=== PATIENT | female | born 1930 | race Caucasian/White ===

== ENCOUNTER 2019-10-16 13:36 | Emergency (ER) | payer MEDICARE, BC ==
[2019-10-16] MEDS ORDERED: LIDOCAINE 5% (700 MG) TRANSDERMAL ADH..PATCH TP ONE (14:01)
[2019-10-16] MEDS ORDERED: NAPROXEN 250 MG TABLET PO ONE (14:01)
--- NOTE | 2019-10-16 14:07 | ER Document Report ---
HPI - HPI Time Seen by Provider: 10/16/19 13:56 Pain Level: 5 Notes: Patient is an 89-year-old female who presents complaining of left lower back pain status post fall 6 days ago. Patient states that she tripped and fell forward. Patient states that she did not have any immediate pain and did not hit her head or lose conscious. Patient states that on Saturday she started having soreness to her left lower back that is relieved when she sits forward, but worsened with movement and twisting otherwise. Patient states that the pain also goes away when she supine and sleeping. Patient states that she can wake up without pain, but when she starts twisting her body around is when she starts noticing the pain again. The pain does not radiate. Patient states that her doctor wanted an x-ray of her lower back and of her pelvis because she did have a hip replacement before. She is otherwise eating and drinking without difficulty. She is urinating normally and having normal bowel movements. She is ambulatory with normal gait per patient. Denies drug allergies. She is not on any blood thinning medications. Denies any headache, fever, head injury, neck pain, changes in vision/speech/mentation/hearing, URI, sore throat, chest pain, palpitations, syncope, cough, shortness of breath, wheeze, dyspnea, abdominal pain, nausea/vomiting/diarrhea, urinary retention, dysuria, hematuria, loss of control of bowel or bladder, numbness/tingling, saddle anesthesia, muscle paralysis/weakness, or rash. - ROS Systems Reviewed and Negative: Yes All other systems reviewed and negative Past Medical History - Social History Smoking Status: Never Smoker Chew tobacco use (# tins/day): No Drug Abuse: None Family History: Reviewed & Not Pertinent Patient has suicidal ideation: No Patient has homicidal ideation: No Vertical Provider Document - CONSTITUTIONAL Agree With Documented VS: Yes Notes: PHYSICAL EXAMINATION: GENERAL: Well-appearing, well-nourished and in no acute distress. LUNGS: Breath sounds clear to auscultation bilaterally and equal. No wheezes rales or rhonchi. HEART: Regular rate and rhythm without murmurs, rubs, gallops. ABDOMEN: Soft, nontender, nondistended abdomen. No guarding, no rebound. Normal bowel sounds present. No CVA tenderness bilaterally. No obvious pulsatile mass Musculoskeletal: LE's b/l: FROM to passive/active. Strength 5+/5. No deficits noted. No bony tenderness of extremities. Back: FROM to passive/active. Strength 5+/5. No vertebral point tenderness, stepoffs, or deformities. No other bony tenderness, erythema, swelling, or ecchymosis. SLR negative b/l. + mild reproducible tenderness to the left L- paraspinal mm. Mild spasming. No SI jt tenderness. No foot drop Extremities: No cyanosis, clubbing, or edema b/l. Peripheral pulses 2+. Capillary refill less than 2 seconds. NEUROLOGICAL: Normal speech, normal gait. Normal sensory, motor exams. Reflexes 2+ b/l. PSYCH: Normal mood, normal affect. SKIN: Warm, Dry, normal turgor, no rashes or lesions noted. Course - Re-evaluation Re-evalutation: 10/16/19 Patient is an afebrile, well-hydrated, 89-year-old female who presents to the ED with left low back pain, suspect inflammatory. Vitals are acceptable. PE is otherwise unremarkable for any focal neurological deficits. X-rays acceptable, ?endplate deformity L2 of unknown age, but pt currently not tender here. 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 She has no significant tachycardia, tachypnea, or hypoxia. She is nontoxic-appearing and is tolerating p.o. without difficulties. There are no signs of infection. No other red flag symptoms noted. No other labs or imaging warranted at this time based on H&P. Low suspicion for any meningitis, fracture, expanding/ruptured AAA, cauda equina syndrome, epidural mass lesion/abscess, herniated disc causing severe spinal stenosis, or other systemic infection at this time. Patient is aware that this condition can change from initial presentation and that she needs monitor symptoms closely for any acute changes. I will send her home with a prescription for lidoderm patch, and short course of mobic with GI bleed risk reviewed. Conservative measures otherwise for symptoms. Recheck with your PCM in 3-5 days. Consider consult with orthopedic/physical therapy. Return to the ED with any worsening/concerning symptoms otherwise as reviewed discharge. Patient is in agreement. - Vital Signs Vital signs: Temp Pulse Resp BP Pulse Ox 97.8 F 57 L 16 148/62 H 98 10/16/19 13:48 10/16/19 13:48 10/16/19 13:48 10/16/19 13:48 10/16/19 13:48 Discharge - Discharge Clinical Impression: Low back pain Qualifiers: Chronicity: acute Back pain laterality: left Sciatica presence: without sciatica Qualified Code(s): M54.5 - Low back pain Condition: Stable Disposition: HOME, SELF-CARE Additional Instructions: Rest, Ice Tylenol/ibuprofen as needed Light stretches daily Strength exercises as able Moist heat and massage may help F/u with your PCP in 3-5 days for a recheck Consider consult(s) with Orthopedics/physical therapy for ongoing/worsening symptoms Return to the ED with any worsening symptoms and/or development of fever, headache, chest pain, palpitations, syncope, shortness of breath, trouble breathing, abdominal pain, n/v/d, blood in stool/urine, loss of control of bowel/bladder, urinary retention, muscle weakness/paralysis, saddle anesthesia, numbness/tingling, or other worsening symptoms that are concerning to you. Prescriptions: Lidocaine [Lidoderm 5% (700 mg) Transdermal Patch] 1 patch TP DAILY #10 a dh..patch Meloxicam [Mobic 7.5 Mg Tablet] 7.5 mg PO BID PRN #14 tablet PRN Reason: Forms: Elevated Blood Pressure Referrals: [facility] [Provider Group] - Follow up as needed
--- NOTE | 2019-10-16 15:08 | RADIOLOGY REPORT (SQ) ---
EXAM DESCRIPTION: PELVIS AP COMPLETED DATE/TIME: 10/16/2019 2:35 pm REASON FOR STUDY: back pain, fall COMPARISON: None. NUMBER OF VIEWS: One view TECHNIQUE: AP Pelvis LIMITATIONS: None. FINDINGS: MINERALIZATION: Normal. HIPS: Right hip arthroplasty in good position. PELVIS AND SACRUM: No acute fracture or dislocation. No worrisome bone lesions. PUBIS AND ISCHIUM: No acute fracture. LOWER LUMBAR SPINE: No significant findings as visualized. SOFT TISSUES: No findings. OTHER: No other significant finding. IMPRESSION: NEGATIVE STUDY OF THE PELVIS. COMMENT: Pelvic fractures are often occult on plain radiographs. If strong clinical suspicion for f racture, recommend CT or MR. TECHNICAL DOCUMENTATION: JOB ID: [id number] [email or web address]- All Rights Reserved Reading location - IP/workstation name: [email or web address]
--- NOTE | 2019-10-16 15:11 | RADIOLOGY REPORT (SQ) ---
EXAM DESCRIPTION: L SPINE WHOLE COMPLETED DATE/TIME: 10/16/2019 2:35 pm REASON FOR STUDY: Left low back pain COMPARISON: None. NUMBER OF VIEWS: Five views including obliques. TECHNIQUE: AP, lateral, oblique, and sacral radiographic images acquired of the lumbar spine. LIMITATIONS: None. FINDINGS: MINERALIZATION: Normal. SEGMENTATION: Normal. No transitional anatomy. ALIGNMENT: Mild levoscoliosis. Mild anterolisthesis of L3 on L4. VERTEBRAE: Mild superior endplate compression changes at L2 DISCS: Mild disc narrowing at L5-S1. POSTERIOR ELEMENTS: Hypertrophic facet changes from L3-S1. HARDWARE: None in the spine. PARASPINAL SOFT TISSUES: Normal. PELVIS: Intact as visualized. No fractures or worrisome bone lesions. SI joints intact. OTHER: No other significant finding. IMPRESSION: Mild superior endplate compression changes at L2 of uncertain age. Mild scoliosis. Mil d anterolisthesis of L3 on L4. Degenerative disc disease. Facet arthropathy. TECHNICAL DOCUMENTATION: JOB ID: [id number] [email or web address]- All Rights Reserved Reading location - IP/workstation name: [email or web address]
[2019-10-16 15:41] VITALS: BP 142/72
== END 2019-10-16 15:39 | disposition home or self-care (01) ==
LOC: ER 13:36
DX: M54.5 Low back pain (principal); W19.XXXA Unspecified fall, initial encounter; R25.2 Cramp and spasm
CPT/HCPCS: 99283; 72110; 72170; A9270

== ENCOUNTER 2020-02-12 19:25 | Emergency (ER) | payer MEDICARE, BC ==
[2020-02-12] MEDS ORDERED: MORPHINE SULFATE 10 MG/ML INJ IV ONE (19:45)
[2020-02-12] MEDS ORDERED: NORMAL SALINE 1000 ML 1,000 ML IV PRN (19:45)
--- NOTE | 2020-02-12 19:46 | ER Document Report ---
ED Medical Screen (RME) - General Chief Complaint: Fall Injury Stated Complaint: FALL LEFT ELBOW INJURY Time Seen by Provider: 02/12/20 19:44 Primary Care Provider: CITLALI FRAUSTO MD [Primary Care Provider] - Follow up as needed Information source: Patient - This an 89-year-old female presented to the emergency room today stating that she fell and has dislocated her left elbow. - HPI Onset: Other - Related Data Allergies/Adverse Reactions: No Known Allergies Allergy (Unverified 10/16/19 14:01) Home Medications: Amiodorane. levothyroxine Past Medical History - Social History Chew tobacco use (# tins/day): No Frequency of alcohol use: None Drug Abuse: None Physical Exam - Vital signs Vitals: Temp Pulse Resp BP Pulse Ox 98.0 F 61 20 110/49 L 95 02/12/20 19:33 02/12/20 19:33 02/12/20 19:33 02/12/20 19:33 02/12/20 19:33 Course - Vital Signs Vital signs: Temp Pulse Resp BP Pulse Ox 98.0 F 61 20 110/49 L 95 02/12/20 19:33 02/12/20 19:33 02/12/20 19:33 02/12/20 19:33 02/12/20 19:33 Doctor's Discharge - Discharge Referrals: CITLALI FRAUSTO MD [Primary Care Provider] - Follow up as needed
--- NOTE | 2020-02-12 20:18 | RADIOLOGY REPORT (SQ) ---
EXAM DESCRIPTION: XR ELBOW 1-2 VIEWS COMPLETED DATE/TME: 02/12/2020 19:44 CLINICAL HISTORY: 89 years, Female, pain COMPARISON: None. NUMBER OF VIEWS: 2 TECHNIQUE: Frontal and lateral radiographs were obtained LIMITATIONS: None. FINDINGS: Visualized is dislocation of the radiocapitellar and ulnotrochlear joints, most likely medially. Assessment for an associated fracture is difficult though no obvious displaced fracture fragment is clearly identified. IMPRESSION: Dislocation of the radiocapitellar and ulnotrochlear joints, as above. copyright 2010 [employer]- All Rights Reserved
[2020-02-12] MEDS ORDERED: ONDANSETRON HCL INJ/PF 4 MG/2 ML SDV IV ONE (20:31)
[2020-02-12] MEDS ORDERED: HYDROMORPHONE HCL INJ/PF 2 MG/ML AMPULE IV ONE ×2 (20:31→21:30)
--- NOTE | 2020-02-12 20:58 | ER Document Report ---
Entered by TINY HUSAIN SCRIBE 02/12/202026 Acting as scribe for:ANYI SWANSON IV, MD ED Extremity Problem, Upper - General Chief Complaint: Fall Injury Stated Complaint: FALL LEFT ELBOW INJURY Time Seen by Provider: 02/12/20 19:44 Primary Care Provider: CITLALI FRAUSTO MD [Primary Care Provider] - Follow up as needed MARY JO TAMEZ JR, DO [ACTIVE PROVISIONAL STAFF] - 02/15/20 (call Dr. Tamez's office on 02/15/20 to arrange follow up appointment) Mode of Arrival: Ambulatory Information source: Patient Notes: This 89 year old female patient presents to the ED today with complaints of a left elbow injury and left shoulder pain status post fall that occurred around 1800 today. Patient states that she was walking her dogs this evening when she fell onto her left side due to not letting the leash go in time. Patient reports numbness to her fingers on her left hand and states that it hurts to wiggle them. ED nurse reports patient history of "some type of arrhythmia" and that she takes Amiodorane and Levothyroxine. - Related Data Allergies/Adverse Reactions: No Known Allergies Allergy (Unverified 10/16/19 14:01) Home Medications: Amiodorane. 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 Review of Systems - Review of Systems Constitutional: No symptoms reported EENT: No symptoms reported Cardiovascular: No symptoms reported Respiratory: No symptoms reported Gastrointestinal: No symptoms reported Genitourinary: No symptoms reported Female Genitourinary: No symptoms reported Musculoskeletal: See HPI, Joint pain - Left elbow and shoulder, Other - Finger numbness on left hand Skin: No symptoms reported Hematologic/Lymphatic: No symptoms reported Neurological/Psychological: No symptoms reported -: Yes All other systems reviewed and negative Physical Exam - Vital signs Vitals: Temp Pulse Resp BP Pulse Ox 98.0 F 61 20 110/49 L 95 02/12/20 19:33 02/12/20 19:33 02/12/20 19:33 02/12/20 19:33 02/12/20 19:33 - General General appearance: Alert, Other - Patient is holding LUE flexed and adducted at a 90 degree angle. - HEENT Head: Normocephalic, Atraumatic Eyes: Normal Pupils: PERRL - Respiratory Respiratory status: No respiratory distress Chest status: Nontender Breath sounds: Normal Chest palpation: Normal - Cardiovascular Rhythm: Regular, Bradycardia Heart sounds: Normal auscultation Murmur: No Friction rub: No Gallop: None auscultated - Abdominal Inspection: Normal Distension: No distension Bowel sounds: Normal Tenderness: Nontender - Abdomen soft Organomegaly: No organomegaly - Back Back: Normal, Nontender - Extremities General upper extremity: Other - 2+ radial pulse in LUE. Ulnar pulse not appreciated. General lower extremity: Normal inspection Hand: Other - Active ROM in all digits of left hand. Decreased sensation to the tips of all digits of left hand. Cap refill < 2 seconds. - Neurological Neuro grossly intact: Yes - Psychological Associated symptoms: Normal affect, Normal mood - Skin Skin Temperature: Warm Skin Moisture: Dry Skin Color: Normal Course - Re-evaluation Re-evalutation: 02/12/20 20:55 Results of ED MSE to this point, findings of left elbow radiograph, consult with Dr. Tamez orthopedist discussed with patient and patient's [id number]. 02/12/20 22:33 Dr. Sherry Tamez, orthopedist, was present at the bedside and performed closed reduction of the left lateral elbow dislocation. 02/12/20 22:35 Pt is alerted and oriented x 3, sitting up in bed, in NAD. - Vital Signs Vital signs: Temp Pulse Resp BP Pulse Ox 98.0 F 53 L 15 174/69 H 100 02/12/20 19:33 02/12/20 21:50 02/12/20 22:16 02/12/20 22:16 02/12/20 22:16 - Diagnostic Test Radiology reviewed: Reports reviewed - Consults dr. sherry tamez, orthopedist Time consulted: 20:37 - dr. tamez reviewed the xrays and will come to ed to reduce dislocation Reason for consultation: 02/12/20 20:57 left elbow dislocation Consulted provider: will come to ER Procedures - Conscious Sedation Conscious sedation Time started: 21:44 Time completed: 22:00 Consent obtained: Yes Indication: dislocated left elbow Pt with a mild systemic disease.: P2. - ASA Classification. Airway Evaluation: Normal anatomy Mallampati Classification: Class 2 Used during procedure: Suction available, IV access obtained, Pulse ox on pt., school lunch monitor on pt. Medications administered: Etomidate Reversal agents: None I personally performed/intraservice time: Sedation Complications: No Discharge - Discharge Clinical Impression: Dislocation of left elbow Qualifiers: Encounter type: initial encounter Qualified Code(s): S53.105A - Unspecified dislocation of left ulnohumeral joint, initial encounter Shoulder pain, left Qualifiers: Chronicity: acute Qualified Code(s): M25.512 - Pain in left shoulder Condition: Good Disposition: HOME, SELF-CARE Additional Instructions: Return to the Emergency Department without delay if any worse. HOME CARE INSTRUCTIONS & INFORMATION: Thank you for choosing us for your medical needs. We hope you're satisfied with the care you received. After you leave, you must properly care for your problem and, at the same time, observe its progress. Any condition can change. Some illnesses can change rapidly over hours or days. If your condition worsens, return to the Emergency Department or see your physician promptly. ABOUT YOUR X-RAYS AND EKG'S: If you had an EKG or X-rays taken, they have been read by the Emergency Physician. The X-rays and EKG's will also be read by a Radiologist or Service Delivery Analyst within 24 hours. If discrepancies are noted, you will be notified by telephone. Please be certain the ED has a correct telephone number & address where you can be reached. Also, realize that some fractures or abnormalities do not show up on initial X-rays. If your symptoms continue, see your physician. ABOUT YOUR LABORATORY TEST: If you had laboratory tests, the results have been reviewed by the Emergency Physician. Some test results (for example cultures) may not be available for several days. You will be contacted if any test result shows you need additional treatment. Please be certain the ED has a correct telephone number and address where you can be reached. ABOUT YOUR MEDICATIONS: You will receive instructions on how to take your medicine on the prescription label you receive. Additional information may be provided by the Pharmacy. If you have questions afterwards, call the ED for clarification or further instructions. Some prescribed medications may cause drowsiness. Do not perform tasks such as driving a car or operating machinery without consulting your Pharmacist. If you feel you need a refill of pain medication, your condition will need re-evaluation. Please do not call for a refill of any medication. ABOUT YOUR SIGNATURE: Signature of this document acknowledges to followin. Understanding that you received emergency treatment and that you may be released before al medical problems are known or treated. Please be certain the ED has a correct phone number & address where you can be reached. 2. Acknowledgement that you will arrange for follow-up care as recommended. 3. Authorization for the Emergency Physician to provide information to your follow-up Physician in order to maximize your care. AT ANY TIME, IF YOUR SYMPTOMS CHANGE SIGNIFICANTLY OR WORSEN OR YOU DEVELOP NEW SYMPTOMS, RETURN TO THE EMERGENCY DEPARTMENT IMMEDIATELY FOR RE-EVALUATION. OUR GOAL IS TO PROVIDE EXCELLENT MEDICAL CARE! WE HOPE THAT WE HAVE MET YOUR EXPECTATIONS DURING YOUR EMERGENCY DEPARTMENT VISIT AND THAT YOU FEEL YOU HAVE RECEIVED EXCELLENT CARE! Dislocation You have suffered a dislocation of your joint. It has been reduced (put back in place). It will take time for the tissues around the joint to heal. The joint will be immobilized at first. If possible, elevate the injured area and apply ice packs. After healing is underway, the joint will require [id number] and strengthening exercises. The follow-up care is important in avoiding residual problems following your dislocation. If you note any numbness, muscle weakness, or severe swelling in the affected area, call the doctor or return for re-evaluation at once. Prescriptions: Oxycodone HCl/Acetaminophen [Percocet 5-325 mg Tablet] 1 tab PO Q6HP PRN #15 tablet PRN Reason: Referrals: CITLALI FRAUSTO MD [Primary Care Provider] - Follow up as needed MARY JO TAMEZ JR, DO [ACTIVE PROVISIONAL STAFF] - 02/15/20 (call Dr. Tamez's office on 02/15/20 to arrange follow up appointment) I personally performed the services described in the documentation, reviewed and edited the documentation which was dictated to the scribe in my presence, and it accurately records my words and actions.
[2020-02-12] MEDS ORDERED: ETOMIDATE INJ/PF 20 MG/10 ML SDV IV ONE (21:05)
--- NOTE | 2020-02-12 21:55 | RADIOLOGY REPORT (SQ) ---
EXAM DESCRIPTION: Three views of the left shoulder CLINICAL HISTORY: 89 years Female, fall COMPARISON: None FINDINGS: Bone mineralization is diminished. The glenohumeral joint is located. Scapula is intact. The humeral neck is not seen in profile. No obvious fracture. Possible fracture of the greater tuberosity but again this area is not seen in profile. Visualized portion of the left chest is intact. There is volume loss in the left lung base. IMPRESSION: Nonstandard views demonstrating no dislocation. The shoulder joint is not seen in profile and a subtle fracture of the humeral head cannot be excluded. The scapula is intact.
--- NOTE | 2020-02-12 22:06 | PDOC CONSULTATION ---
Consultation Consult Date: 02/12/20 Provider Consulted: MARY JO BORGES JR History of Present Illness Admission Date/PCP: CITLALI FRAUSTO MD History of Present Illness: BEVERLY DENSON is a 89 year old female. She presents after a fall onto her left elbow. Reports immediate deformity, severe pain, and inability to use her left upper extremity. She presented to the emergency department where she was found to have a lateral dislocation of her elbow. Denies loss of sensation or motor function to the distal left upper extremity. Denies head injury or other associated injury with the fall. Denies loss of consciousness. Reports fall was due to tripping rather than other etiology. Pain is currently a 4 out of 10 after having considerable quantity of narcotics. She is uncomfortable at rest. Described as aching. Some distal paresthesia but distal sensation is still intact. Past Medical History Past Medical History: Reviewed and not pertinent to current injury. 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 Social History Smoking Status: Never Smoker Electronic Cigarette use?: No Family History Family History: Reviewed & Not Pertinent Parental Family History Reviewed: No Children Family History Reviewed: NA Sibling(s) Family History Reviewed.: NA Medication/Allergy Home Medications: Lidocaine [Lidoderm 5% (700 mg) Transdermal Patch] 1 patch TP DAILY #10 adh..patch 10/16/19 Meloxicam [Mobic 7.5 Mg Tablet] 7.5 mg PO BID PRN #14 tablet 10/16/19 Allergies/Adverse Reactions: No Known Allergies Allergy (Unverified 10/16/19 14:01) Review of Systems Review of Systems: Constitutional: ABSENT: anorexia, chills, night sweats Cardiovascular: ABSENT: chest pain Respiratory: ABSENT: dyspnea Gastrointestinal: ABSENT: vomiting Genitourinary: ABSENT: dysuria Integumentary: ABSENT: rash Neurological: ABSENT: confusion, memory loss, numbness Psychiatric: ABSENT: hallucinations Hematologic/Lymphatic: ABSENT: easy bleeding All negative as above aside from that reported in the HPI and the following: Some slight paresthesia to the left upper extremity distally at the fingertips. However grossly neurovascular intact Physical Exam Vital Signs: Temp Pulse Resp BP Pulse Ox 98.0 F 53 L 19 167/70 H 98 02/12/20 19:33 02/12/20 21:47 02/12/20 21:47 02/12/20 21:47 02/12/20 21:47 Intake & Output 02/11/20 02/12/20 02/13/20 06:59 06:59 06:59 Weight 73.7 kg Physical Exam: General appearance: PRESENT: no acute distress, cooperative, well-nourished Head exam: PRESENT: atraumatic, normocephalic Eye exam: PRESENT: EOMI Ear exam: PRESENT: normal external ear exam Mouth exam: PRESENT: neck supple Neck exam: ABSENT: tracheal deviation Respiratory exam: PRESENT: symmetrical, unlabored. ABSENT: accessory muscle use, wheezes Pulses: PRESENT: normal radial pulses, normal dorsalis pedis pulse Vascular exam: PRESENT: normal capillary refill GI/Abdominal exam: ABSENT: distended, firm Extremities exam: PRESENT: full ROM of bilateral shoulders, elbows wrists, knees, hips and ankles without pain Musculoskeletal exam: PRESENT: full ROM, normal inspection of all 4 extremities aside from that noted below. Neurological exam: PRESENT: alert, awake, oriented to person, oriented to place, oriented to time Psychiatric exam: PRESENT: appropriate affect. ABSENT: agitated Focused psych exam: ABSENT: catatonic Skin exam: PRESENT: intact. ABSENT: dry All as above aside from that noted in the HPI and the following: upper extremity sensation grossly intact to radial median and ulnar nerve. upper extremity motor function grossly intact to radian median ulnar nerve AIN and PIN Pulses 2+, capillary refill less than 2 seconds No deformity noted in the shoulder wrist and fingers, and range of motion in those joints without pain, patient does report some discomfort in the left shoulder at rest Severe deformity noted without skin tenting or skin injury to the left elbow. No capable range of motion without severe pain. Compartments soft, no tenderness to palpation skin intact Results Impressions: Elbow X-Ray 02/12/20 19:44 IMPRESSION: Dislocation of the radiocapitellar and ulnotrochlear joints, as above. copyright 2010 [employer]- All Rights Reserved Assessment & Plan - Diagnosis (1) Dislocation of left elbow Qualifiers: Encounter type: initial encounter Qualified Code(s): S53.105A - Unspecified dislocation of left ulnohumeral joint, initial encounter Plan: The patient was evaluated in the emergency department and deemed appropriate for left closed reduction of the elbow. PROCEDURE NOTE: After discussing risks and benefits of multiple treatment options including conservative and procedural management the patient provided informed written consent for closed left elbow reduction under sedation. A timeout was performed. The injury was reviewed under fluoroscopy. After receiving sedation and ensuring adequate analgesia, the left upper extremity underwent a reduction maneuver. Subsequent to this the injured tree was then reviewed again under fluoroscopy and deemed to be concentrically located. The left elbow was then taken through a range of motion and provocative testing found to be stable. A soft well-padded posterior splint was then applied. She was then awakened under anesthesia in stable condition. She tolerated the procedure well. Subsequent evaluation of the left upper extremity found her to remain neurovascular intact with no further paresthesia. -The patient is to return to my office in approximately 6 to 10 days for further evaluation. Until that time she is to maintain her left elbow splint and keep it clean and dry. If there is any acute changes she is to return to the emergency department or my office as soon as possible. This was discussed with her and her daughter who was present throughout the encounter. -Pain control per the emergency department -Final post reduction x-rays pending (2) Shoulder pain, left Plan: On initial evaluation of the shoulder and x-rays there is no obvious fracture, deformity, or acute injury. She likely has a contusion leading to soreness. We will obtain a axillary view prior to her discharge. She will be maintained in a sling until evaluation in the office.
[2020-02-12 22:25] VITALS: BP 174/69
[2020-02-12] MEDS ORDERED: HYDROCODONE/ACETAMINOPHEN 5-325 MG (6 TAB/ER DISP) PO PRN (22:35)
--- NOTE | 2020-02-12 22:53 | RADIOLOGY REPORT (SQ) ---
EXAM DESCRIPTION: XR ELBOW 1-2 VIEWS COMPLETED DATE/TME: 02/12/2020 00:00 CLINICAL HISTORY: 89 years, Female, post reduction COMPARISON: None. NUMBER OF VIEWS: 2 TECHNIQUE: Frontal and lateral radiograph are obtained LIMITATIONS: None. FINDINGS: Overlying cast material obscures fine bony detail. Pre-existing dislocation of the radiocapitellar and ulnotrochlear joints has been reduced. Alignment now appears near-anatomic. A linear radiodensity projects just anterior to the distal humerus on the lateral projection which could indicate a tiny avulsion fracture fragment of uncertain origin. No significant elbow joint effusion. IMPRESSION: Interval reduction of pre-existing radiocapitellar and ulnotrochlear joint dislocation. Linear ossific density projecting just anterior to the distal humerus on the lateral projection could be artifactual or related to a tiny avulsion fracture fragment of uncertain origin. copyright 2010 [employer]- All Rights Reserved
--- NOTE | 2020-02-12 22:53 | RADIOLOGY REPORT (SQ) ---
EXAM DESCRIPTION: XR SHOULDER 2 OR MORE VIEWS COMPLETED DATE/TME: 02/12/2020 21:59 CLINICAL HISTORY: 89 years, Female, pain, include axillary view COMPARISON: None. NUMBER OF VIEWS: 3 TECHNIQUE: 3 views left shoulder LIMITATIONS: None. FINDINGS: Osteopenia. Advanced degenerative changes of the acromioclavicular and glenohumeral joints. Negative for acute fracture or dislocation. Soft tissues are unremarkable IMPRESSION: Osteopenia with advanced degenerative change copyright 2010 [employer]- All Rights Reserved
--- NOTE | 2020-02-12 22:55 | RADIOLOGY REPORT (SQ) ---
EXAM DESCRIPTION: Matrix images of the left elbow CLINICAL HISTORY: 89 years Female, CR IN ED LT ELBOW dislocated elbow. COMPARISON: Radiographs of the elbow obtained earlier in the day at 7:53 PM FINDINGS: Three intraoperative matrix images were obtained. The fluoroscopy time is nine seconds. Images did not demonstrate anatomic alignment of the elbow joint with reduction of previously seen elbow dislocation. IMPRESSION: Intraoperative fluoroscopy utilized to reduce an elbow dislocation.
--- NOTE | 2020-02-13 09:35 | RADIOLOGY REPORT (SQ) ---
EXAM DESCRIPTION: NO CHG FLUORO COMPLETE DATE/TIME: 02/12/2020 10:28 pm REASON FOR STUDY: CR IN ED LT ELBOW FINDINGS: Please see combined report for performance of procedure and radiologic supervision and int erpretation. IMPRESSION: Please see combined report for performance of procedure and radiologic supervision and i nterpretation. Reading location - IP/workstation name: [email or web address]
== END 2020-02-12 23:32 | disposition home or self-care (01) ==
LOC: ER 19:25
DX: S53.105A Unspecified dislocation of left ulnohumeral joint, initial encounter (principal); M25.512 Pain in left shoulder; W19.XXXA Unspecified fall, initial encounter; R00.1 Bradycardia, unspecified
CPT/HCPCS: 96376; 99284; 96361; 99152; 96374; 96375; 73070; 73030 ×2; 24600; J2270; J1170; J2405; J7030; J3490; A9270